=== PATIENT | male | born 1965 | race Caucasian/White ===

== ENCOUNTER 2020-06-27 11:36 | Emergency (ER) | payer MEDICAID, OTHER ==
[~2020-06-27] VITALS: Ht 177.8 cm; Wt 86.2 kg
[2020-06-27 11:38] VITALS: BP 178/108
== END 2020-06-27 13:11 | disposition home or self-care (01) ==
LOC: ER 11:36
DX: M20.011 Mallet finger of right finger(s) (principal)
CPT/HCPCS: 73140

== ENCOUNTER 2022-08-15 10:59 | Emergency (ER) | payer MEDICAID ==
[~2022-08-15] VITALS: Ht 177.8 cm; Wt 90.0 kg
[2022-08-15] MEDS ORDERED: ONDANSETRON HCL 4 MG/2 ML VIAL IV ONE (11:30)
[2022-08-15] MEDS ORDERED: fentaNYL CITRATE 100 MCG/2 ML VL IV ONE (11:30)
[2022-08-15 12:30] VITALS: BP 122/78
[2022-08-16] MEDS ORDERED: AUG875T PO (11:03)
== END 2022-08-15 12:44 | disposition home or self-care (01) ==
LOC: ER 10:59
DX: R04.0 Epistaxis (principal); J45.909 Unspecified asthma, uncomplicated; I10 Essential (primary) hypertension
CPT/HCPCS: 30905; 96374; 96375; 99284; J2405; J3010; 30901

== ENCOUNTER 2022-08-15 14:05 | Emergency (ER) | payer MEDICAID ==
[~2022-08-15] VITALS: Ht 177.8 cm; Wt 90.0 kg
[2022-08-15] MEDS ORDERED: SODIUM CHLORIDE 0.9% 2,700 ML IV ONE (14:45)
[2022-08-15] MEDS ORDERED: ONDANSETRON HCL 4 MG/2 ML VIAL IV ONE (14:45)
[2022-08-15 15:32] LABS: Basophils # (auto) 0.1 10 ^3/uL (0-0.2); Basophils % (auto) 1.1 % (0.0-2.0); Eosinophils # (auto) 0.2 10 ^3/uL (0-0.8); Eosinophils % (auto) 1.8 % (0.0-7.0); Hemoglobin 12.5 g/dL (13.5-17.5); Lymphocytes # (auto) 1.1 10 ^3/uL (0.4-5.4); Lymphocytes % (auto) 11.4 % (10.0-50.0); Mean Corpuscular Hemoglobin 29.9 pg (28.0-32.0); Mean Corpuscular Hgb Conc. 32.1 g/dL (32.0-36.0); Mean Corpuscular Volume 93.2 fL (80.0-100.0); Monocytes # (auto) 0.6 10 ^3/uL (0-1.3); Monocytes % (auto) 6.2 % (0.0-12.0); Neutrophils # (auto) 7.8 10 ^3/uL (1.6-8.6); Neutrophils % (auto) 79.5 % (37.0-80.0); Nucleated Red Blood Cells % 0.2 %; Red Blood Cells 4.19 10^6/uL (4.5-5.90); Red Cell Distribution Width 16.2 % (11.8-14.3); White Blood Cell 9.8 10^3/uL (4.4-10.8)
[2022-08-15 15:37] LABS: Albumin 3.8 g/dL (3.4-5.0); Calcium 9.1 mg/dL (8.5-10.1); Potassium 4.3 mmol/L (3.5-5.1)
[2022-08-15 15:40] LABS: BUN/Creatinine Ratio 8.5 (10.0-20.0)
[2022-08-15 15:43] LABS: Bilirubin, Total 1.2 mg/dL (0.2-1.0); Total Protein 7.5 g/dL (6.4-8.2)
[2022-08-15 16:09] VITALS: BP 105/69
[2022-08-16] MEDS ORDERED: AUG875T PO (11:03)
== END 2022-08-15 18:55 | disposition home or self-care (01) ==
LOC: EDBD 14:05 → ER 14:05
DX: R55 Syncope and collapse (principal); E86.0 Dehydration; I95.9 Hypotension, unspecified; J45.909 Unspecified asthma, uncomplicated; I10 Essential (primary) hypertension
CPT/HCPCS: 36415; 70450; 80053; 84484; 86850; 86900; 86901; 96361; 96374; 99285; J2405; J7030

== ENCOUNTER 2022-08-16 07:52 | Emergency (ER) | payer MEDICAID ==
[~2022-08-16] VITALS: Ht 177.8 cm; Wt 92.3 kg
[2022-08-16 09:44] VITALS: BP 130/88
[2022-08-16] MEDS ORDERED: AUG875T PO (11:03)
[2022-08-16] MEDS ORDERED: OXYMETAZOLINE HCL 0.05 % NASAL SPRAY 15ML ONE (11:15)
== END 2022-08-16 12:12 | disposition home or self-care (01) ==
LOC: ER 07:52
DX: R04.0 Epistaxis (principal); J45.909 Unspecified asthma, uncomplicated; I10 Essential (primary) hypertension
CPT/HCPCS: 30901